=== PATIENT | female | born 1960 | race Caucasian/White ===

== ENCOUNTER 2016-11-22 12:05 | Inpatient (IN) ==
[2016-11-22 14:03] LABS: URINE CULTURE NEEDED? NO; URINE MICRO REVIEW NEEDED? NO; URINE SOURCE CLEAN CATCH
[2016-11-22 14:07] LABS: BILIRUBIN URINE NEGATIVE (NEGATIVE); BLOOD URINE MODERATE (NEGATIVE); COLOR YELLOW; GLUCOSE URINE NEGATIVE (NEGATIVE); LEUKOCYTES URINE NEGATIVE (NEGATIVE); NITRITE URINE NEGATIVE (NEGATIVE); PH URINE 6.5; PROTEIN URINE TRACE mg/dL (NEGATIVE); SP GRAVITY URINE 1.019; TURBIDITY URINE CLEAR (CLEAR); UR EPITHELIAL CELLS <10 /HPF (<10); URINE BACTERIA NEGATIVE /HPF; URINE RBC 20-40 /HPF (<10); URINE WBC <10 /HPF (<10); UROBILINOGEN URINE NORMAL (NORMAL)
[2016-11-22 14:12] LABS: BASO% 0.2 % (0.0-0.8); EOS# 0.12 X1000 (0.0-0.7); EOS% 1.5 % (0.0-10.0); HEMOGLOBIN 14.2 g/dL (12.0-16.0); LYMPH# 2.27 X1000 (1.2-3.4); LYMPH% 28.1 % (20.5-51.1); MANUAL DIFF NEEDED? NO; MCH 31.8 PG (27-31); MCHC 37.4 g/dL (33-37); MCV 85.2 FL (81-99); MONO# 0.51 X1000 (0.11-0.59); MONO% 6.3 % (1.7-9.3); MPV 9.4 FL (7.4-10.4); NEUT% 63.9 % (42.2-75.2); PLT 310 X1000 (130-400); RBC 4.46 XMIL (4.2-5.4)
[2016-11-22 14:52] LABS: ALBUMIN 4.3 g/dL (3.5-5.0); ALKALINE PHOSPHATASE 62 U/L (32-104); AMYLASE 37 U/L (20-200); BUN 7 mg/dL (8-22); CALCIUM 8.6 mg/dL (8.8-10.2); CHLORIDE 72 mmol/L (98-107); GOT 29 U/L (10-30); GPT 19 U/L (10-36); LIPASE 17 U/L (13-60); POTASSIUM 4.2 mmol/L (3.5-5.1); TCO2 20 mmol/L (25-35); TOTAL BILIRUBIN 0.66 mg/dL (0.20-1.00); TOTAL PROTEIN 7.4 g/dL (6.3-8.3)
[2016-11-22 14:58] LABS: AGAP 16; COSMO 217
[2016-11-22] MEDS ORDERED: BENADRYL IV ONE (15:01)
[2016-11-22] MEDS ORDERED: SODIUM CHLORIDE 0.9% INJ ONE ×2 (15:01→15:03)
[2016-11-22] MEDS ORDERED: SOLU-MEDROL IV ONE (15:01)
[2016-11-22] MEDS ORDERED: PHENERGAN IV ONE (15:01)
[2016-11-22] MEDS ORDERED: NS 1,000 ML IV ONE (15:01)
[2016-11-22 15:02] LABS: SODIUM 108 mmol/L (136-145)
[2016-11-22] MEDS ORDERED: PEPCID IV ONE (15:03)
[2016-11-22] MEDS ORDERED: NS 1,000 ML ONE (15:04)
--- NOTE | 2016-11-22 15:29 | PROVIDER DOCUMENTATION ---
HPI-General Adult - General Chief Complaint: Allergic Reaction Stated Complaint: ALLERGIC REACTION Time Seen by Provider: 11/22/16 12:45 Source: patient Allergies/Adverse Reactions: Patient Allergies Allergy/AdvReac Type Severity Reaction Status Date / Time Penicillins Allergy Severe ANAPHYLAXIS Verified 11/22/16 15:03 Home Medications: Amoxicillin 500 mg PO TID 11/22/16 - History of Present Illness -Gen Adult Nature of Presenting Problems: Reports her dentist gave her Amoxi fro dental infection, but she is allergic to FLIGHT [employer]. She tool 7 doses of Amoxi 500mg caps and she has been vomiting since last night. Denies F/C/abd pain, but she feels tired and looks pale. Location of Pain/Injury: reports: none Pain Radiation: reports: no radiation Quality of Pain: reports: none Severity: reports: moderate Onset/Duration: reports: last night Timing: reports: still present Context/Activities at Onset: reports: none Associated Symptoms: reports: denies symptoms, anxiety, arm pain Similar Symptoms Previously?: No Recently seen or treated by another doctor?: No Review of Systems - Adult - REVIEW OF SYSTEMS - ADULT Constitutional: reports: see HPI, fatique Eyes: reports: no symptoms reported Ears, Nose, Mouth & Throat: reports: no symptoms reported, other (L bottom molar dental cavity) Cardiovascular: reports: no symptoms reported Respiratory: reports: no symptoms reported Gastrointestinal: reports: see HPI, abdominal pain Genitourinary: reports: no symptoms reported Musculoskeletal: reports: no symptoms reported Integumentary: reports: no symptoms reported Neurological: reports: no symptoms reported Psychiatric: reports: no symptoms reported Endocrine: reports: no symptoms reported All Other Systems: Reviewed and Negative Past History - Adult - PAST MEDICAL HISTORY-ADULT Genitourinary: reports: kidney stones Musculoskeletal: reports: chronic pain (back) Psychiatric: reports: bipolar Other Conditions: reports: eye problems/injury (parasite right eye) - PRIOR SURGERIES/PROCEDURES Surgical/Procedure History: reports: hysterectomy, tonsillectomy, other (eye) - IMMUNIZATION STATUS Childhood Immunizations: See Nurse Assessment Flu Vaccine: See Nurse Assessment Physical Exam-General - PHYSICAL EXAM-ADULT Initial Vital Signs Reviewed: Yes - CONSTITUTIONAL General Appearance: appears well, alert, no apparent distress - EYES Eyes: PERRL/EOMI, pink conjunctivae - HEAD, EARS, NOSE, MOUTH & THROAT HENMT: normocephalic/atraumatic, moist mucous membranes, normal ENT inspection, TMs normal - NECK Neck: non-tender, full range of motion, supple - RESPIRATORY Respiratory: chest non-tender, lungs clear, normal breath sounds, no pleuratic chest pain, no respiratory distress, no accessory muscle use - CARDIOVASCULAR Cardiovascular: normal peripheral pulses, regular rate, rhythm, no edema - GASTROINTESTINAL (ABDOMEN) Abdominal Exam: normal bowel sounds, non tender, soft, no organomegaly - MUSCULOSKELETAL Back Exam: normal inspection, no CVA tenderness, no vertebral tenderness Extremity: normal range of motion, non-tender, normal gait, normal inspection - SKIN Integumentary: normal color, normal turgor, warm/dry - NEUROLOGIC Neurologic: grossly normal, abnormal gait - PSYCHIATRIC Psych/Mental Status: normal mood/affect, normal thought content, normal thought process, oriented x 3 Progress - PLAN OF CARE/RESULTS Progress/Plan/Lab Results: Laboratory Results - last 24 hr 11/22/16 11/22/16 11/22/16 13:48 13:48 13:54 WBC 8.09 RBC 4.46 Hgb 14.2 Hct 38.0 MCV 85.2 MCH 31.8 H MCHC 37.4 H RDW Std Deviation 12.0 Plt Count 310 MPV 9.4 Neut % (Auto) 63.9 Lymph % (Auto) 28.1 [place] % (Auto) 6.3 Eos % (Auto) 1.5 Baso % (Auto) 0.2 Neut # (Auto) 5.17 Lymph # (Auto) 2.27 [place] # (Auto) 0.51 Eos # (Auto) 0.12 Baso # (Auto) 0.02 Sodium 108 L* Potassium 4.2 Chloride 72 L Carbon Dioxide 20 L Anion Gap 16 BUN 7 L Creatinine 0.5 Estimated GFR/1.73 m2 > 60 BUN/Creatinine Ratio 14 Glucose 90 Calculated Osmolality 217 Calcium 8.6 L Total Bilirubin 0.66 AST 29 ALT 19 Alkaline Phosphatase 62 Total Protein 7.4 Albumin 4.3 Globulin 3.1 Albumin/Globulin Ratio 1.4 Amylase 37 Lipase 17 Urine Source CLEAN CATCH Urine Color YELLOW Urine Turbidity CLEAR Urine pH 6.5 Ur Specific [place] 1.019 Urine Protein TRACE A Ur Glucose (Stick) NEGATIVE Ur Ketones (Stick) 100 A Urine Blood MODERATE A Urine Nitrite NEGATIVE Urine Bilirubin NEGATIVE Urobilinogen Dipstick NORMAL Urine Leukocytes NEGATIVE Urine WBC (Auto) <10 Urine RBC (Auto) 20-40 A U Epithel Cells (Auto) <10 Urine Bacteria (Auto) NEGATIVE Vital Signs Temp Pulse Resp BP Pulse Ox 11/22/16 12:17 97.4 F L 70 20 123/65 100 Penicillins Allergy (Severe, Verified 11/22/16 15:03) ANAPHYLAXIS Amoxicillin 500 mg PO TID 11/22/16 Laboratory 11/22/16 11/22/16 11/22/16 13:54 13:48 13:48 WBC 8.09 RBC 4.46 Hgb 14.2 Hct 38.0 MCV 85.2 MCH 31.8 H MCHC 37.4 H RDW Std Deviation 12.0 Plt Count 310 MPV 9.4 Neut % (Auto) 63.9 Lymph % (Auto) 28.1 [place] % (Auto) 6.3 Eos % (Auto) 1.5 Baso % (Auto) 0.2 Neut # (Auto) 5.17 Lymph # (Auto) 2.27 [place] # (Auto) 0.51 Eos # (Auto) 0.12 Baso # (Auto) 0.02 Sodium 108 L* Potassium 4.2 Chloride 72 L Carbon Dioxide 20 L Anion Gap 16 BUN 7 L Creatinine 0.5 Estimated GFR/1.73 m2 > 60 BUN/Creatinine Ratio 14 Glucose 90 Calculated Osmolality 217 Calcium 8.6 L Total Bilirubin 0.66 AST 29 ALT 19 Alkaline Phosphatase 62 Total Protein 7.4 Albumin 4.3 Globulin 3.1 Albumin/Globulin Ratio 1.4 Amylase 37 Lipase 17 Urine Source CLEAN CATCH Urine Color YELLOW Urine Turbidity CLEAR Urine pH 6.5 Ur Specific [place] 1.019 Urine Protein TRACE A Ur Glucose (Stick) NEGATIVE Ur Ketones (Stick) 100 A Urine Blood MODERATE A Urine Nitrite NEGATIVE Urine Bilirubin NEGATIVE Urobilinogen Dipstick NORMAL Urine Leukocytes NEGATIVE Urine WBC (Auto) <10 Urine RBC (Auto) 20-40 A U Epithel Cells (Auto) <10 Urine Bacteria (Auto) NEGATIVE Orders Category Date Time Status AMYLASE [CHEM] Stat Lab 11/22/16 13:48 Completed BMP [BASIC METABOLIC PANEL] [CHEM] Stat Lab 11/22/16 15:22 Uncollected CBC WITH ELECTRONIC DIFF [HEME] Stat Lab 11/22/16 13:48 Completed COMPREHENSIVE METABOLIC PANEL [CHEM] Stat Lab 11/22/16 13:48 Completed CORTISOL Stat Lab 11/22/16 15:24 Ordered LIPASE [CHEM] Stat Lab 11/22/16 13:48 Completed MAGNESIUM [CHEM] Stat Lab 11/22/16 15:20 Uncollected Na+ [SODIUM] [CHEM] Q6 Lab 11/22/16 15:23 Uncollected Na+ [SODIUM] [CHEM] Q6 Lab 11/22/16 21:23 Uncollected Na+ [SODIUM] [CHEM] Q6 Lab 11/23/16 03:23 Uncollected Na+ [SODIUM] [CHEM] Q6 Lab 11/23/16 09:23 Uncollected Na+ [SODIUM] [CHEM] Q6 Lab 11/23/16 15:23 Uncollected Na+ [SODIUM] [CHEM] Q6 Lab 11/23/16 21:23 Uncollected OSMOTIC FRAGILITY RBC [KIRKPATRICK] Stat Lab 11/22/16 15:24 Ordered TSH Stat Lab 11/22/16 15:24 Ordered UA Reflex [URINALYSIS W/POSS RFLX CULT] [URINALYSIS] Lab 11/22/16 13:54 Completed Stat UR OSMOLALITY [CHEM] Stat Lab 11/22/16 15:24 Uncollected UR SODIUM [URCHEM] Stat Lab 11/22/16 15:25 Uncollected 0.9% Sodium Chloride Inj [Ns] 1,000 ml Med 11/22/16 15:04 Discontinued .ROUTE As Directed 0.9% Sodium Chloride Inj [Ns] 1,000 ml Med 11/22/16 15:01 Active IV 999 mls/hr Diphenhydramine [Benadryl] Med 11/22/16 15:01 Discontinued 50 mg IV NOW ONE Famotidine [Pepcid] Med 11/22/16 15:03 Discontinued 20 mg IV NOW ONE Methylprednisolone Sod Succ [Solu-Medrol] Med 11/22/16 15:01 Discontinued 125 mg IV NOW ONE Promethazine [Phenergan] Med 11/22/16 15:01 Discontinued 25 mg IV NOW ONE Sodium Chloride 0.9% Med 11/22/16 15:01 Discontinued 10 ml INJ NOW ONE Sodium Chloride 0.9% Med 11/22/16 15:03 Discontinued 5 - 10 ml INJ NOW ONE Transfer/Admit Order [TRANSFER] Routine Transfer 11/22/16 15:27 Ordered - CONSULTS/PCP/HOSPITALIST Notification Time Discussed: 15:32 Reason/Comments: Admit to Dr. Myers Consult Disposition: Will see in ED, Admit Departure - Departure Time of Disposition Order: 15:32 DIAGNOSIS: Hyponatremia, Dehydration Allergic reaction Qualifiers: Encounter type: initial encounter Qualified Code(s): T78.40XA - Allergy, unspecified, initial encounter Disposition: ADMITTED INPATIENT 09 Certified Medical Emergency: Emergent Condition: Stable Referrals: Aury Ordonez MD [Primary Care Provider] -
[2016-11-22] MEDS ORDERED: NACL 3% 100 ML IV ONE ×5 (15:35→21:13)
[2016-11-22] MEDS ORDERED: ZOFRAN IV PRN (15:54)
[2016-11-22] MEDS ORDERED: ATIVAN ONE (16:18)
[2016-11-22 16:55] LABS: URINE CULTURE NEEDED? NO; URINE MICRO REVIEW NEEDED? NO; URINE SOURCE CATH
[2016-11-22 16:58] LABS: BILIRUBIN URINE NEGATIVE (NEGATIVE); BLOOD URINE MODERATE (NEGATIVE); COLOR YELLOW; GLUCOSE URINE NEGATIVE (NEGATIVE); LEUKOCYTES URINE NEGATIVE (NEGATIVE); NITRITE URINE NEGATIVE (NEGATIVE); PH URINE 6.5; PROTEIN URINE TRACE mg/dL (NEGATIVE); SP GRAVITY URINE 1.011; TURBIDITY URINE CLEAR (CLEAR); UR EPITHELIAL CELLS <10 /HPF (<10); URINE BACTERIA 1+ /HPF; URINE RBC 20-40 /HPF (<10); URINE WBC <10 /HPF (<10); UROBILINOGEN URINE NORMAL (NORMAL)
[2016-11-22 17:50] LABS: AGAP 19
[2016-11-22 17:51] LABS: BUN 6 mg/dL (8-22); CALCIUM 8.6 mg/dL (8.8-10.2); CHLORIDE 75 mmol/L (98-107); COSMO 219; POTASSIUM 4.2 mmol/L (3.5-5.1); SODIUM 109 mmol/L (136-145); TCO2 15 mmol/L (25-35)
--- NOTE | 2016-11-22 18:06 | HISTORY AND PHYSICAL ---
PRIMARY CARE PROVIDER: Dr. Ordonez. CHIEF COMPLAINT: Allergic reaction. HISTORY OF PRESENT ILLNESS: Ms. Yudi Gray is a 55-year-old female who was currently highly confused. Is unable to answer questions that are asked so information is gathered from the ER report as she was having normal mentation on admission. She reported to them that she has got a past medical history of kidney stones, chronic pain syndrome in her back, bipolar disease. 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 According to the ER documentation, she reported that her dentist gave her amoxicillin since for a dental infection. Apparently she has a left bottom molar dental cavity. She does have an allergy to penicillin. Apparently she started having vomiting since last night and has had several bouts of vomiting. She denied abdominal pain or constipation but was feeling tired and looking pale and was complaining of fatigue. Apparently she felt that the amoxicillin was causing her to have an allergic reaction. Upon assessment, she has since become confused since admission. According to the nurse, the patient received 25 of Phenergan, 50 of Benadryl, Pepcid, 125 of Solu-Medrol and about 400 mL of 1 L normal saline and from then until the time of assessment, she had become confused which was a short timeframe. Workup during this time revealed a sodium level of 108. Will admit her to the ICU and work her up for severe hyponatremia, significant risk of cerebral edema during sodium replacement. Her white blood cells are normal. We will hold off on antibiotics for now. Her chloride is significantly low at 72. Kidney function is normal. Urinalysis is negative. Random urine sodium shows a number count of 73. PAST MEDICAL HISTORY: Obtained through the ER documentation as patient was not able to tell me her past medical history. 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 SURGICAL HISTORY: Hysterectomy and tonsillectomy and the surgery on the right eye. SOCIAL HISTORY: She was able to tell me her social history before she stopped talking to me and she said she smoked 1 pack per day of cigarettes, drank alcohol about once every 6 months and denied illicit drugs. FAMILY HISTORY: Unable to obtain. REVIEW OF SYSTEMS: Unable to obtain due to patient's status. ALLERGIES: Penicillin causes anaphylaxis. HOME MEDICATIONS: Amoxicillin 500 mg p.o. 3 times a day. LABORATORY DATA: White blood cells 8000, hemoglobin 14, hematocrit 38, platelet count 310,000. Sodium 108, potassium 4.2, chloride 72, bicarb 22, anion gap 16. BUN 7, creatinine 0.5. Glucose 90. Calcium 8.6, magnesium 1.7, total bilirubin 0.66. AST 29, ALT 19. TSH 2.73. Urinalysis trace protein, 100 ketones, moderate blood, 20-40 red blood cells. IMAGING: None. PHYSICAL EXAMINATION: VITAL SIGNS: Temperature 97.4 degrees, heart rate 70, respiratory rate 20, blood pressure 123/65, O2 saturation 100% on room air. GENERAL: Ms. Gray is a 55-year-old female. She is in no acute distress but is very agitated and not answering many questions at all. HEENT: Atraumatic, normocephalic. Right eye is magno out and mal-shapen. Left pupil 3 mm and brisk. Will not follow commands to perform extraocular movements. Mucous membranes are very dry. NECK: No carotid bruits or JVD. CARDIOVASCULAR: S1, S2. Regular rate and rhythm. No rubs, gallops murmurs. PULMONARY: Clear to auscultation. Bilateral breath sounds. No accessory muscle use or work of breathing noted. GI: Soft, nontender, nondistended. Positive bowel sounds x4. NEUROLOGIC: Would not answer orientation questions. Essentially quit answering questions during history assessment. She would not follow commands but only on occasion would follow commands. She was purposeful with her actions but was extremely agitated and disoriented. EXTREMITIES: All extremities moved equally. No edema noted in the lower extremities and +2 dorsalis pedal pulses. SKIN: Warm, dry, intact although pale. ASSESSMENT AND PLAN: 1. Severe hyponatremia with dehydration. We will replace sodium with high importance of high risk for cerebral edema. She so far has received 400 mL of 1 L of normal saline. Her 1st sodium count was 108. We have ordered a stat sodium level. There has been an order for 3% 100 mL over 15 minute IV bolus x1 that Dr. Myers had ordered. She will have a sodium via BMP every 4 hours. Urine osmolality and sodium has been ordered. 2. Metabolic encephalopathy secondary to severe hyponatremia. It appears that after receiving Phenergan, Benadryl, Pepcid, Solu-Medrol and 400 saline bolus she became confused, agitated and trying to get out of bed. Currently ordered is Ativan for agitation. 3. Dental caries. Currently her white blood cells normal. She is afebrile. We will hold on antibiotic therapy at this time. She was on amoxicillin. 4. Severe hypochloridemia secondary to #1. Will treat as #1. 5. Deep venous thrombosis prophylaxis. Lovenox. 6. Gastrointestinal prophylaxis. Will do proton pump inhibitor. Dictated by ALVARO Villa for Hever Jones MD
[2016-11-22] MEDS: ATIVAN IV PRN ×3 (18:14→23:04)
[2016-11-22 20:41] LABS: AGAP 15; BUN 6 mg/dL (8-22); CALCIUM 8.7 mg/dL (8.8-10.2); CHLORIDE 77 mmol/L (98-107); COSMO 224; SODIUM 111 mmol/L (136-145); TCO2 19 mmol/L (25-35)
[2016-11-22] MEDS ORDERED: STERILE WATER INJ. INJ ONE (20:52)
[2016-11-22] MEDS ORDERED: GEODON IM SCH (21:00)
[2016-11-22] MEDS: LOVENOX SUBQ SCH (21:20)
[2016-11-22] MEDS ORDERED: GEODON IM PRN (23:01)
[2016-11-22] MEDS ORDERED: NS 1,000 ML IV SCH (23:30)
[2016-11-23 01:15] LABS: AGAP 19; BUN 6 mg/dL (8-22); CALCIUM 8.9 mg/dL (8.8-10.2); CHLORIDE 80 mmol/L (98-107); COSMO 228; POTASSIUM 4.2 mmol/L (3.5-5.1); TCO2 14 mmol/L (25-35)
[2016-11-23 01:16] LABS: SODIUM 113 mmol/L (136-145)
[2016-11-23] MEDS: HALDOL IV PRN ×2 (01:42→08:43)
[2016-11-23 02:14] LABS: UR AMPHETAMINES QUAL NONE DETECTED (NONE DETECT); UR BARBITUATES QUAL NONE DETECTED (NONE DETECT); UR BENZODIAZEPIN QUAL NONE DETECTED (NONE DETECT); UR CANNABINOIDS QUAL NONE DETECTED (NONE DETECT); UR COCAINE QUAL NONE DETECTED (NONE DETECT); UR METHADONE QUAL NONE DETECTED (NONE DETECT); UR OPIATES QUAL PRESUMPTIVE POSITIVE (NONE DETECT); UR OXYCODONE QUAL PRESUMPTIVE POSITIVE (NONE DETECT); UR PCP QUAL NONE DETECTED (NONE DETECT)
[2016-11-23 03:43] LABS: AGAP 17; BUN 6 mg/dL (8-22); CHLORIDE 82 mmol/L (98-107); COSMO 234; POTASSIUM 4.1 mmol/L (3.5-5.1); TCO2 17 mmol/L (25-35)
[2016-11-23 03:44] LABS: SODIUM 116 mmol/L (136-145)
[2016-11-23] MEDS ORDERED: HALDOL IV SCH (05:00)
[2016-11-23 05:29] LABS: BASO% 0.1 % (0.0-0.8); HEMATOCRIT 37.2 % (37.0-47.0); IMM GRAN# 0.05 X1000 (0.0-0.04); IMM GRAN% 0.3 % (0.0-0.5); LYMPH# 1.07 X1000 (1.2-3.4); LYMPH% 6.2 % (20.5-51.1); MANUAL DIFF NEEDED? YES; MCH 31.3 PG (27-31); MCHC 37.6 g/dL (33-37); MCV 83.2 FL (81-99); MONO% 5.8 % (1.7-9.3); MPV 9.5 FL (7.4-10.4); NEUT% 87.6 % (42.2-75.2); PLT 350 X1000 (130-400); RBC 4.47 XMIL (4.2-5.4)
[2016-11-23 05:55] LABS: AGAP 17; BUN 6 mg/dL (8-22); CALCIUM 9.1 mg/dL (8.8-10.2); CHLORIDE 83 mmol/L (98-107); COSMO 233; POTASSIUM 4.2 mmol/L (3.5-5.1); TCO2 16 mmol/L (25-35)
[2016-11-23 05:56] LABS: SODIUM 116 mmol/L (136-145)
[2016-11-23] MEDS ORDERED: PRILOSEC PO SCH (07:00)
[2016-11-23] MEDS ORDERED: NS 1,000 ML IV SCH (07:04)
[2016-11-23 07:21] LABS: BANDS 4 % (0-1); LYMPHS 4 % (21-51); MONO 6 % (1-9)
[2016-11-23] MEDS: PROTONIX IV SCH (09:14)
[2016-11-23 09:30] LABS: AGAP 15; BUN 6 mg/dL (8-22); CALCIUM 8.9 mg/dL (8.8-10.2); CHLORIDE 84 mmol/L (98-107); COSMO 234; POTASSIUM 3.9 mmol/L (3.5-5.1); SODIUM 117 mmol/L (136-145); TCO2 18 mmol/L (25-35)
--- NOTE | 2016-11-23 09:57 | PROGRESS NOTE ---
DATE: 11/23/2016 SUBJECTIVE: Patient is sedated now because she went to have a CT scan of the head. OBJECTIVE: Vital Signs: Temperature 99 degrees, heart rate 79, respiratory rate 15, blood pressure 113/68, O2 saturation 97% on room air. General Examination: This is a 55-year-old, female lying in bed, sedated, in no acute distress. HEENT: Head is normocephalic and atraumatic. Anicteric sclerae and pale conjunctivae. Mucous membranes dry. Pupils equal, round, and reactive to light and accommodation. Neck: Supple. No JVD noted. No carotid bruits. No lymphadenopathy. No thyromegaly. Cardiovascular Examination: S1 and S2 heard. No murmurs, gallops, or rubs. Regular rate and rhythm. Respiratory Examination: Clear bilaterally to auscultation. No work of breathing or using accessory muscles. Abdomen: Soft , nontender to palpation. Bowel sounds present. No organomegaly. Extremities: No clubbing, cyanosis, or edema. Peripheral pulses present in both legs. Neurological Examination: Patient is sedated. It is not possible to perform a good neurological examination but she was not moving 4 extremities before being sedated. Laboratory Data: White cell count is 17.13, hemoglobin 14, hematocrit 37.2, platelets 350,000. Sodium 116. Rest of the BMP unremarkable. ASSESSMENT AND PLAN: 1. Severe hyponatremia. This patient was admitted to the hospital for hyponatremia that we find out incidentally. The patient was admitted to the hospital for an episode of allergy and after she was given Benadryl and Phenergan in the emergency room, her BMP and CBC were drawn, and we found the sodium was 108. At the time that this patient was found out this low sodium, she was doing fine as per ER physician and 10 minutes later I went to see her and as per ER nurse she became more lethargic and restless. Patient was admitted to the intensive care unit. She received until now so far 2 doses of 100 mL of 3% hypertonic saline that was given over 15 minutes. Yesterday, she was admitted around 4 p.m. so until 4 p.m. today my goal is to increase sodium between 6-8 mEq. So far, we have increased it 8 mEq. Apparently, she is a little bit better, less restless today. We have instructed the nurse to not give any sedative medication unless it is truly needed. By now, we will continue with normal saline at 50 mL per hour. We will continue watching this patient in the unit. Apparently, she has history of bipolar disorder as per emergency room notes, although this information has not been confirmed with the who was not at bedside today when I examined this patient. We do not know if she was taking some antidepressant or anticonvulsant, and if yes, for how long, we do not know. In any case, we will continue with the same plan that was described above. Urine osmolality is really high. The serum osmolality is not yet back but the calculated is low so this looks like more than syndrome of inappropriate antidiuretic hormone secretion picture. The workup for hyponatremia that included TSH was normal. Mild elevated cortisol that is something that we expect because she received steroids because of allergic reaction. 2. Metabolic encephalopathy secondary to hyponatremia. By now, she is stable and a little better. Time spent seeing this patient was 35 minutes. [facility]ITALSalud
--- NOTE | 2016-11-23 10:34 | Diag Imaging Result Document ---
PROCEDURE NAME: HEAD W/O CONTRAST - 11/23/2016 CT HEAD WITHOUT CONTRAST: COMPARISON: None available. FINDINGS: There is no discrete intracranial mass, mass effect, or intracranial hemorrhage. There is no evidence of hydrocephalus. There is no evidence of acute infarct given the limited sensitivity of CT versus MRI. The surrounding soft tissues and bony structures are essentially unremarkable. IMPRESSION: No evidence of acute intracranial pathology.
[2016-11-23] MEDS: ATIVAN IV PRN (12:19)
[2016-11-23 13:08] LABS: AGAP 15; BUN 6 mg/dL (8-22); CALCIUM 8.3 mg/dL (8.8-10.2); CHLORIDE 82 mmol/L (98-107); COSMO 227; POTASSIUM 3.7 mmol/L (3.5-5.1); SODIUM 113 mmol/L (136-145); TCO2 16 mmol/L (25-35)
[2016-11-23] MEDS: NS 1,000 ML IV SCH ×2 (13:30→21:09)
[2016-11-23] MEDS ORDERED: LEVAQUIN 750 MG/D5W 150 ML IV SCH (19:15)
[2016-11-23] MEDS ORDERED: CLINDAMYCIN 600 MG/NS 50 ML IV SCH (19:15)
[2016-11-23] MEDS: LOVENOX SUBQ SCH (20:16)
[2016-11-23] MEDS: LEVAQUIN 750 MG/D5W 150 ML IV SCH (20:16)
[2016-11-23] MEDS: CLINDAMYCIN 600 MG/NS 50 ML IV SCH (21:09)
[2016-11-23 22:07] LABS: AGAP 12; BUN 8 mg/dL (8-22); CALCIUM 7.8 mg/dL (8.8-10.2); CHLORIDE 87 mmol/L (98-107); COSMO 236; POTASSIUM 3.4 mmol/L (3.5-5.1); SODIUM 117 mmol/L (136-145); TCO2 18 mmol/L (25-35)
[2016-11-24 03:07] LABS: AGAP 14; BUN 7 mg/dL (8-22); CALCIUM 8.1 mg/dL (8.8-10.2); CHLORIDE 86 mmol/L (98-107); COSMO 236; POTASSIUM 3.8 mmol/L (3.5-5.1); SODIUM 118 mmol/L (136-145); TCO2 18 mmol/L (25-35)
[2016-11-24] MEDS: CLINDAMYCIN 600 MG/NS 50 ML IV SCH ×2 (05:49→14:28)
[2016-11-24 05:55] LABS: BASO% 0.1 % (0.0-0.8); EOS# 0.04 X1000 (0.0-0.7); EOS% 0.4 % (0.0-10.0); HEMATOCRIT 35.8 % (37.0-47.0); HEMOGLOBIN 13.3 g/dL (12.0-16.0); IMM GRAN# 0.03 X1000 (0.0-0.04); IMM GRAN% 0.3 % (0.0-0.5); LYMPH# 2.11 X1000 (1.2-3.4); LYMPH% 19.6 % (20.5-51.1); MANUAL DIFF NEEDED? YES; MCH 31.7 PG (27-31); MCHC 37.2 g/dL (33-37); MCV 85.2 FL (81-99); MONO# 0.91 X1000 (0.11-0.59); MONO% 8.5 % (1.7-9.3); MPV 9.5 FL (7.4-10.4); NEUT% 71.1 % (42.2-75.2); PLT 304 X1000 (130-400)
[2016-11-24 06:28] LABS: AGAP 13; BUN 7 mg/dL (8-22); CALCIUM 8.3 mg/dL (8.8-10.2); CHLORIDE 88 mmol/L (98-107); COSMO 240; POTASSIUM 3.7 mmol/L (3.5-5.1); SODIUM 120 mmol/L (136-145); TCO2 19 mmol/L (25-35)
[2016-11-24 08:24] LABS: LYMPHS 24 % (21-51); MONO 2 % (1-9)
[2016-11-24] MEDS: SODIUM CHLORIDE 0.9% INJ SCH (08:55)
[2016-11-24] MEDS: PROTONIX IV SCH (08:55)
[2016-11-24] MEDS: NS 1,000 ML IV SCH ×2 (08:55→17:09)
[2016-11-24 09:13] LABS: AGAP 14; BUN 6 mg/dL (8-22); CHLORIDE 86 mmol/L (98-107); COSMO 236; POTASSIUM 3.7 mmol/L (3.5-5.1); SODIUM 118 mmol/L (136-145); TCO2 18 mmol/L (25-35)
--- NOTE | 2016-11-24 09:41 | Diag Imaging Result Document ---
PROCEDURE NAME: CHEST-2 VIEWS - 11/24/2016 2 VIEWS OF THE CHEST: FINDINGS: There is no evidence of acute cardiac or pulmonary disease. Compared to 03/16/2014 considering differences in technique and inspiration there has been no significant change. IMPRESSION: No acute disease.
--- NOTE | 2016-11-24 10:52 | PROGRESS NOTE ---
DATE: 11/24/2016 SUBJECTIVE: Patient is alert and oriented. Unable to provide a history. As per who is at bedside, she is back to her baseline. OBJECTIVE: Vital Signs: Temperature 97.6 degrees, heart rate 75, respiratory rate 15, blood pressure 128/68, O2 saturation 99% on room air. General Examination: This is a 55-year-old, female lying in bed, in no acute distress. HEENT: Head is normocephalic and atraumatic. Anicteric sclerae and pale conjunctivae. Mucous membranes moist. Neck: Supple. No JVD noted. No carotid bruits. No lymphadenopathy. No thyromegaly. Cardiovascular Examination: S1 and S2 heard. No murmurs, gallops, or rubs. Regular rate and rhythm. Respiratory Examination: Clear bilaterally to auscultation. No work of breathing or using accessory muscles. Abdomen: Soft, nontender to palpation. Bowel sounds present. No organomegaly. Extremities: No clubbing, cyanosis, or edema. Peripheral pulses present in both legs. Neurological Examination: Patient is alert and oriented x3. Able to move 4 extremities and have a good conversation. Laboratory Data: White cell count 10.75, hemoglobin 13.3, hematocrit 35.8, platelets 304,000. Sodium 120, potassium 3.7, chloride 86, bicarbonate 18, BUN 6, creatinine 0.5, calcium 8. ASSESSMENT AND PLAN: 1. Severe hyponatremia. The patient was admitted to the hospital for hyponatremia of unknown source. Patient has been admitted to the intensive care unit for the last 2 days. She was given twice 100 mL of hypertonic saline 2% 15 minutes and also on maintenance , she on normal saline at 160 per hour. By now, the sodium was 120. We have increased the sodium in the last 24 hours on 8 units and today is 120 so we are slowly increasing the amount of sodium in the blood. At this time, we are going to continue with the same management. Clinically, this patient is definitely back to normal and I think all the symptoms like lethargy and restlessness were due to low sodium. In any case, this patient, as I mentioned, reportedly back to normal. Able to have a good conversation. She reports not taking her medications for psychiatric conditions for a while. She does not remember exactly what diagnosis she was given but she is not on any medications for at least more than a year. Also , she was told in the emergency room that she had a low sodium. On records that we have here, at least from BMP from March 2014 and January 2016, and also September 2016, sodium was 136-135 so this hyponatremia is most probably acute. In any case, we will continue with the same fluid replacement by IV. We are going to check today a BMP at 5 p.m. and also tomorrow. If the sodium is much better and the mental status is okay, we may let this patient go. 2. Metabolic encephalopathy, completely resolved. [facility]
[2016-11-24 17:44] LABS: AGAP 15; BUN 6 mg/dL (8-22); CHLORIDE 83 mmol/L (98-107); COSMO 234; POTASSIUM 3.4 mmol/L (3.5-5.1); TCO2 19 mmol/L (25-35)
[2016-11-24 18:09] LABS: SODIUM 117 mmol/L (136-145)
[2016-11-24] MEDS ORDERED: NS 1,000 ML IV SCH (20:53)
[2016-11-24] MEDS: 1/2 NS 1,000 ML IV SCH (22:19)
[2016-11-24] MEDS: LOVENOX SUBQ SCH (22:39)
[2016-11-24] MEDS: LEVAQUIN 750 MG/D5W 150 ML IV SCH (22:40)
[2016-11-25] MEDS: CLINDAMYCIN 600 MG/NS 50 ML IV SCH ×3 (00:12→15:04)
[2016-11-25] MEDS ORDERED: CALMOSEPTINE OINTMENT TOP PRN (02:22)
[2016-11-25 07:08] LABS: MANUAL DIFF NEEDED? NO
[2016-11-25 07:44] LABS: AGAP 13; BUN 3 mg/dL (8-22); CALCIUM 7.9 mg/dL (8.8-10.2); CHLORIDE 82 mmol/L (98-107); COSMO 229; POTASSIUM 3.3 mmol/L (3.5-5.1); SODIUM 114 mmol/L (136-145); TCO2 20 mmol/L (25-35)
[2016-11-25 07:57] LABS: BASO% 0.3 % (0.0-0.8); EOS# 0.08 X1000 (0.0-0.7); EOS% 0.8 % (0.0-10.0); HEMATOCRIT 31.6 % (37.0-47.0); HEMOGLOBIN 11.6 g/dL (12.0-16.0); IMM GRAN# 0.02 X1000 (0.0-0.04); IMM GRAN% 0.2 % (0.0-0.5); LYMPH# 2.39 X1000 (1.2-3.4); LYMPH% 25.1 % (20.5-51.1); MCH 31.2 PG (27-31); MCHC 36.7 g/dL (33-37); MCV 84.9 FL (81-99); MONO# 0.82 X1000 (0.11-0.59); MONO% 8.6 % (1.7-9.3); MPV 9.3 FL (7.4-10.4); PLT 303 X1000 (130-400); RBC 3.72 XMIL (4.2-5.4)
[2016-11-25] MEDS: PROTONIX IV SCH (08:35)
[2016-11-25] MEDS: SODIUM CHLORIDE 0.9% INJ SCH (08:35)
[2016-11-25] MEDS: 1/2 NS 1,000 ML IV SCH (09:44)
[2016-11-25] MEDS ORDERED: SAMSCA PO SCH (10:30)
--- NOTE | 2016-11-25 11:39 | CONSULTATION ---
DATE OF CONSULTATION: 11/25/2016 REASON FOR ADMISSION: Possible allergic reaction to penicillin with severe weakness and syncopal episode. REASON FOR CONSULT: Hyponatremia. HISTORY OF PRESENT ILLNESS: Ms. Gray is a 55-year-old white female who is currently confused to most recent events. Is unable to give an accurate report into the last several days during her hospitalization. She reports that she sees Dr. Ordonez as her primary care physician. Due to increased congestion she was given amoxicillin with an allergy of penicillin. She states that she started having vomiting several days before coming into the hospital. She denies any abdominal pain. No chest pain. No increased work of breathing. Increased fatigue. Increased confusion. During this period of time she presented to [facility]. She was given Phenergan, Benadryl, Pepcid and Solu-Medrol along with 1 L normal saline. It was found during that period of time that she had a sodium level of 108. Subsequently she was admitted to ICU for a hyponatremia workup. Significant risk for cerebral edema for close evaluation. Her kidney function is normal. She denies any nausea, vomiting, or diarrhea at this time. Random urine sodium did show a number count of 73. During this hospitalization she continues to be confused, so she was moved out to the floor. Her sodium continues low at 114. She currently has half normal saline infusing at 100 mL an hour. She has not been placed on a fluid restriction. According to home medication she is not on any offending trigger medications for hydrochlorothiazide for antidepressants. Due to her low sodium she continues to be monitored on the floor. PAST MEDICAL HISTORY: She currently has an abscess to the left molar dental cavity. She states that she does have a history of kidney stones with chronic back pain. 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 It is also noted on her chart that she has bipolar disorder. SURGICAL HISTORY: 1. Hysterectomy. 2. Tonsillectomy. 3. Surgery on her right eye. SOCIAL HISTORY: She is a current smoker of 1 pack per day Drinks alcohol on occasion. Denies any illicit drug use. FAMILY HISTORY: Unable to obtain. CURRENT ALLERGIES: To Penicillin causing anaphylaxis. HOME MEDICATION: Amoxicillin. REVIEW OF SYSTEMS: Review of systems x 10 is best obtained per chart and per patient. Pertinent positives listed above in the HPI.Vital Signs: Temperature 98.6 degrees, blood pressure 111/80, heart rate 73, respirations 21. She remains on room air. Last recorded saturation of 100%. She has had 1900 in; she has had 2590 out per Miller catheter. LABS: This a.m. sodium 114, potassium 3.3, chloride 82, CO2 20, BUN 3, creatinine 0.5, glucose 94. She has an anion gap of 13. Calcium is 7.9. White count 9.53 hemoglobin 11.6, hematocrit 31.6 with a platelet count of 303,000. The patient has had diarrhea related to her amoxicillin and C. difficile has been negative. Chest x-ray on admission yesterday showed no acute disease. Head CT done on admission shows no evidence of intracranial pathology. PHYSICAL EXAMINATION: General: This is a 55-year-old white female. She is currently resting in bed. She continues slightly confused upon questioning. Skin: Warm and dry. HEENT: Atraumatic normocephalic. Right eye is white, mal-shaped. Left pupil is brisk at 3 mm. She is able to answer some questions and then becomes forgetful. Mucous membranes are moist. Neck: Supple. Trachea midline. No JVD. Cardiovascular: Regular rate and rhythm. She is without murmur or gallop. Lungs: Clear to auscultation anteriorly. Equal excursion. Abdomen: Large, round, soft, nontender. Positive bowel sounds. Genitourinary: Not inspected. Patient is voiding. Integumentary: The patient has abrasions to both bilateral extremities to the elbows. She states it is possibly due to being restrained during her initial admission. No abrasions noted to the face. Extremities: Lower- no edema. No clubbing or cyanosis. Neurological: As mentioned. ASSESSMENT AND PLAN: 1. Severe hyponatremia. Likely SIADH with a urine osmolality of 561 with a random urine sodium of 73. We will stop patient's normal saline. We will add Samsca 15 mg p.o. today and plan for tomorrow. We will continue to monitor electrolytes checking her urine sodium every 4 hours with indications to call if of sodium rises greater than 2-3 points in 4 hours. She is not to be on a fluid restriction. We have put this in order to the nursing staff; otherwise, no further indications or changes at this time. We have reviewed her medication. She has not been on any offending medicines at this time.rg 2. Altered mental status. This does continue. This is more than likely secondary to her continued low sodium. I would like to thank you for allowing us to follow with this patient. Seen, data reviewed, discussed with Osbaldo Fernandes on 11/25/15. I agree with the above assessment and plan of care. rg Dictated by ALVARO Calderon for Tobias Mejia MD [facility]
--- NOTE | 2016-11-25 17:26 | PROGRESS NOTE ---
DATE: 11/25/2016 SUBJECTIVE: The patient states that she is feeling better, she is able to maintain a conversation with me. I am not quite sure if this is her baseline, no family members at the bedside. She is still mildly confused, but compared with the beginning she is much better. OBJECTIVE: Vital Signs: Temperature 97.8 degrees, pulse 73, respiratory rate 10, blood pressure 97/56, oxygen saturation 97% on room air. HEENT: Head normocephalic. No trauma. 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 Neck: Supple. No JVD. No masses. Chest: Clear to auscultation. No wheezing. No rales. Cardiovascular: Regular rhythm and rate. No murmurs. No gallops. No rubs. Abdomen: Soft, nontender, nondistended. No hepatosplenomegaly. Extremities: No edema. No clubbing. No cyanosis. Neurological: The patient is alert. She is oriented x3, but somewhat it looks like she has been having problems remembering thinks, I am not quite sure if this is her baseline. I do not have any family members around like I said before. LABORATORY: WBC 9.5, hemoglobin 11.6, platelets 303,000. Sodium 118, potassium 3.3, chloride 82, bicarbonate 20, BUN 3, creatinine 0.5, glucose 94, calcium 79. ASSESSMENT AND PLAN: 1. Severe hyponatremia, Nephrology Department has been consulted, they already evaluated this patient, and they stopped the intravenous fluids and they will try to improve the sodium with tolvaptan, two doses. We will monitor the sodium. 2. Metabolic encephalopathy, compared with beginning she is much better, I am not quite sure what is her baseline, no family members are around, will monitor. 3. Chronic back pain. Stable.
[2016-11-25] MEDS: LEVAQUIN 750 MG/D5W 150 ML IV SCH (20:50)
[2016-11-25] MEDS: LOVENOX SUBQ SCH (20:51)
[2016-11-25] MEDS: D5W 1,000 ML IV SCH (23:35)
[2016-11-26] MEDS: CLINDAMYCIN 600 MG/NS 50 ML IV SCH ×4 (00:26→23:51)
[2016-11-26 04:42] LABS: BASO% 0.3 % (0.0-0.8); EOS# 0.05 X1000 (0.0-0.7); EOS% 0.5 % (0.0-10.0); HEMATOCRIT 36.5 % (37.0-47.0); HEMOGLOBIN 13.7 g/dL (12.0-16.0); IMM GRAN# 0.03 X1000 (0.0-0.04); IMM GRAN% 0.3 % (0.0-0.5); LYMPH% 26.1 % (20.5-51.1); MANUAL DIFF NEEDED? NO; MCH 31.9 PG (27-31); MCHC 37.5 g/dL (33-37); MCV 84.9 FL (81-99); MONO# 0.87 X1000 (0.11-0.59); MONO% 9.1 % (1.7-9.3); MPV 8.9 FL (7.4-10.4); NEUT% 63.7 % (42.2-75.2); PLT 376 X1000 (130-400)
[2016-11-26 05:56] LABS: BUN 6 mg/dL (8-22); CALCIUM 9.1 mg/dL (8.8-10.2); TCO2 21 mmol/L (25-35)
[2016-11-26 08:05] LABS: AGAP 16; CHLORIDE 98 mmol/L (98-107); COSMO 266; POTASSIUM 3.3 mmol/L (3.5-5.1); SODIUM 134 mmol/L (136-145)
[2016-11-26] MEDS ORDERED: KLOR-CON PO ONE (09:01)
[2016-11-26] MEDS: PROTONIX IV SCH (09:19)
[2016-11-26] MEDS: SODIUM CHLORIDE 0.9% INJ SCH (09:19)
[2016-11-26] MEDS: D5W 1,000 ML IV SCH (11:46)
--- NOTE | 2016-11-26 15:17 | PROGRESS NOTE ---
DATE: 11/26/2016 SUBJECTIVE: This patient states that she is feeling much better, she has no complaints today. OBJECTIVE: Vital Signs: Temperature 98.1 degrees, pulse 74, respiratory rate 20, blood pressure 108/66, oxygen saturation 99 on room air. HEENT: Head normocephalic. No trauma. 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 Neck: Supple. No JVD. No masses. Chest: Clear to auscultation. No wheezing. No rales. Cardiovascular : RRR. No murmurs. No gallops. No rubs. Abdomen: Soft, nontender, nondistended. No hepatosplenomegaly. Extremities: No edema. No clubbing. No cyanosis. Neurological: The patient is alert. She is oriented x3. She is not confused today. No family members at the bedside. LABORATORY: WBC 9.5, hemoglobin 13.7, hematocrit 36.5, platelets 376,000. Sodium 131, potassium 3.3, chloride 98, bicarbonate 21, BUN 6, creatinine 0.7, glucose 97, calcium 9.1. ASSESSMENT AND PLAN: 1. Severe hyponatremia. Nephrology department has been consulted. They already evaluated this patient and they treated this patient, the sodium improved, is close to normal. The plan is to keep this patient 1 more day and tomorrow hopefully we are going to be able to discharge this patient. 2. Metabolic encephalopathy. Resolved. 3. Chronic pain syndrome. Stable. MTDD
[2016-11-26] MEDS: LEVAQUIN 750 MG/D5W 150 ML IV SCH (20:12)
[2016-11-26] MEDS: LOVENOX SUBQ SCH (20:12)
--- NOTE | 2016-11-26 20:17 | PROGRESS NOTE ---
DATE: 11/26/2016 TIME SEEN: 0745. SUBJECTIVE: Ms. Gray is currently sitting up in bed. She states that she is feeling a little bit better. She denies chest pain or increased work of breathing. States that she is feeling stronger. OBJECTIVE: Vital Signs: Her most recent vital signs, temperature 98.1 degrees , blood pressure 108/66, heart rate 74, respirations are 20, she was on room air. Last recorded saturation 99%. She has had 2180 in. She has had greater than 11,000 out, which I think is actually 11,120 mL out. LABORATORY DATA: This a.m., sodium is 134, potassium 3.3, chloride 98, CO2 21, BUN 6, creatinine 0.7, anion gap 21, glucose 97, calcium 9.1. Previous sodium of 132 with most current sodium of 131. Her last CBC, white count 9.57, hemoglobin 13.7, hematocrit 36.5, with a platelet count of 376,000. PHYSICAL EXAMINATION: General: This is a 55-year-old white female. She is sitting up in bed. She appears chronically ill. She is in no acute distress. Skin: Warm and dry. HEENT: Normocephalic, atraumatic. Conjunctivae pale. She has BRITTANEY. Mucous membranes moist. Neck: Supple. Trachea midline. No JVD. Cardiovascular: Regular rate and rhythm. She is without murmur or gallop. Lungs: Clear to auscultation anteriorly. Equal excursion on room air. Abdomen: Round, soft, nontender. Positive bowel sounds. Genitourinary: Not inspected. Adequate void. Integumentary: Patient has healing stages of abrasions to her bilateral elbows with some bruising and ecchymosis noted to the upper and lower extremities in different stages of healing. Neurologic: She is more alert and oriented today. She is able to give a better review of systems. Extremities: No edema. No clubbing or cyanosis. ASSESSMENT AND PLAN: 1. Hyponatremia. We had given patient Samsca 15 mg yesterday. She was not on a fluid restriction. Patient started correcting up into the 130s from 118. She was placed on 1 L D5W yesterday evening at 100 mL an hour. We will hold her 2nd Samsca today. We will continue to monitor her sodium every 4 hours. She remains off of a fluid restriction at this time. Upon questioning the patient, she does state that she is drinking all the time. She believes that she drinks approximately 2-4 L of fluid daily. 2. Altered mental status. This is currently improving. No indications for any changes at this time. Addendum. I went ahead and dosed with Samsca again in the evening of 11/26/16 b/ c her sodium had stabilized in the low 130's. rg I would like to thank you for allowing us to follow with this patient. Seen, data reviewed, discussed with Osbaldo Fernandes on 11/26/16. I agree with the above assessment and plan of care. rg Dictated by ALVARO Calderon for Tobias Mejia MD [facility]
[2016-11-26] MEDS ORDERED: SAMSCA PO ONE (21:56)
[2016-11-27 05:37] VITALS: BP 106/73
[2016-11-27 06:41] LABS: MANUAL DIFF NEEDED? NO
[2016-11-27 06:51] LABS: BASO% 0.7 % (0.0-0.8); EOS# 0.46 X1000 (0.0-0.7); EOS% 3.8 % (0.0-10.0); HEMATOCRIT 37.4 % (37.0-47.0); HEMOGLOBIN 13.5 g/dL (12.0-16.0); IMM GRAN# 0.04 X1000 (0.0-0.04); IMM GRAN% 0.3 % (0.0-0.5); LYMPH# 3.21 X1000 (1.2-3.4); LYMPH% 26.7 % (20.5-51.1); MCH 31.5 PG (27-31); MCHC 36.1 g/dL (33-37); MCV 87.2 FL (81-99); MONO# 0.95 X1000 (0.11-0.59); MONO% 7.9 % (1.7-9.3); MPV 9.1 FL (7.4-10.4); NEUT% 60.6 % (42.2-75.2); PLT 425 X1000 (130-400); RBC 4.29 XMIL (4.2-5.4)
[2016-11-27 07:17] LABS: AGAP 14; BUN 6 mg/dL (8-22); CALCIUM 9.5 mg/dL (8.8-10.2); CHLORIDE 100 mmol/L (98-107); COSMO 271; POTASSIUM 3.3 mmol/L (3.5-5.1); SODIUM 137 mmol/L (136-145); TCO2 23 mmol/L (25-35)
[2016-11-27] MEDS ORDERED: KLOR-CON PO ONE (08:26)
[2016-11-27] MEDS ORDERED: FLUZONE QUAD 2016-2017 SYRINGE IM ONE (09:00)
[2016-11-27] MEDS: PROTONIX IV SCH (09:20)
[2016-11-27] MEDS: CLINDAMYCIN 600 MG/NS 50 ML IV SCH (09:20)
--- NOTE | 2016-11-27 15:08 | PROGRESS NOTE ---
DATE: 11/27/2016 TIME SEEN: Is 1350. SUBJECTIVE: Ms. Gray is resting quietly on the side of the bed. She is sitting up. She states that she is feeling well. She denies chest pain or increased work of breathing. No increased weakness. No nausea, vomiting. OBJECTIVE: Her most recent vital signs, temperature 97.8, blood pressure 106/73 , heart rate 76, respirations are 18. She remains on room air. Last recorded saturation 100%. She has had 1100 in. She has had 1350 out. She is not on a fluid restriction secondary to receiving Samsca yesterday evening. LABS: This a.m. sodium 137, potassium 3.3, chloride 100, CO2 of 23, BUN 6, creatinine 0.7. Her glucose is 94, calcium 9.5. Previous white count 12.03, hemoglobin 13.5, hematocrit 37.4, with a platelet count of 425,000. PHYSICAL EXAMINATION: General: This is a 55-year-old, white female. She is sitting up. She is in no acute distress. Skin: Warm and dry. HEENT: Normocephalic, atraumatic. She continues to have opaqueness to her right eye secondary to surgery. Otherwise, left pupil is reactive to light. Mucous membranes are moist. Neck: Supple. Trachea midline. No JVD. Cardiovascular: Regular rate and rhythm. She is without murmur or gallop. Lungs: Clear to auscultation anteriorly. Equal excursion. She is on room air. Abdomen: Protuberant, round , soft, nontender. Positive bowel sounds. Genitourinary: Not inspected. Patient is voiding adequate amount. Integumentary: She continues to have healing stages of abrasions to her upper extremities with different stages of healing, ecchymoses to the upper and lower extremities as noted. No rashes or lesions. Extremities: Have no edema. No clubbing or cyanosis. Neurological: She is alert and oriented x3. ASSESSMENT AND PLAN: 1. Hyponatremia. Patient was given Samsca 15 mg again yesterday due to a plateau of her sodium at 131. This has responded nicely. She remains on no fluid restriction, though we have told her if she does not go home on Samsca she is to stay on a 2 L fluid restriction, 64 fluid ounces. Patient does admit along with her daughter that she drinks anywhere from 4-6 L daily. We have not indicated that this is inappropriate at this time. She is to follow up with her primary care physician. 2. Altered mental status. This has improved. I would like to thank you for allowing us to follow with this patient. Data reviewed, discussed with Osbaldo Fernandes on 11/27/16. I agree with the above assessment and plan of care. rg Dictated by ALVARO Calderon for Tobias Mejia MD [facility]
--- NOTE | 2016-11-28 11:49 | DISCHARGE SUMMARY ---
ADMISSION DATE: 11/22/2016 DISCHARGE DATE: 11/27/2016 CONSULTATION: Dr. Tobias Mejia with nephrology. PERTINENT PROCEDURE: Head CT showed no evidence of acute intracranial pathology. DISCHARGE DIAGNOSES: 1. Severe hyponatremia, likely syndrome of inappropriate diuretic hormone with a urine osmolality 561. Nephrology was consulted and the patient was given 2 doses of Samsca, improved. 2. Metabolic encephalopathy, resolved. 3. Chronic pain syndrome, stable. 4. Severe hypochloridemia secondary to her hyponatremia, resolved. 5. Dental caries. Patient was placed on IV antibiotics; previously before that, she had been on amoxicillin. Will go home on no antibiotics. HOSPITAL COURSE: Briefly, Ms. Gray is a 55-year-old female, who was highly confused in the ED and was unable to answer the SH[employer]G TRAINER's questions at the time of admission. However, per the ER report she was having normal mentation on admission to the ED. She had reported to them that she has got a past medical history of kidney stones, chronic pain syndrome in her back with bipolar disease. 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 According to the ER documentation, she reported that her dentist gave her amoxicillin the previous for a dental infection. She had apparently had a left bottom molar dental cavity and does carry an allergy to penicillin. She started having constipation, but was feeling tired and looking pale and complained of fatigue. She felt like the amoxicillin was causing an allergic reaction. According to the nurse, the patient received 25 of Phenergan, 50 of Benadryl along with Pepcid and Solu-Medrol and a 400 mL bolus of normal saline. Workup did reveal a sodium level of 108. She was admitted to the ICU for further workup for her hyponatremia, and her significant risk of cerebral edema during her sodium replacement. White counts were normal. Initially held off on antibiotics, but then started on IV antibiotics for her dental caries. She also had serial BMPs to monitor her sodium. She was started on hypertonic 2% saline and changed to normal saline. Her sodium slowly had an upward trend. The patient reports not taking her psychiatric medications for awhile now. She was unable to get the type of medications and/or dosage she was on. Dr. Mejia was consulted. Her metabolic encephalopathy had completely resolved. Dr. Mejia felt it was severe hyponatremia most likely SIADH with a urine osmolality of 561 and a random urine of 73. Her normal saline was stopped. They added Samsca and continued to monitor her electrolytes. The patient was taken off any fluid restrictions. The patient's sodium went from 118-130. She was then placed on 1 L D5W at 100 mL/hour. Her second dose of Samsca was held. We continued to monitor her serum sodium every 4 hours. She will remain off fluid restrictions. Since 11/25 around 7:40 in the evening, the patient's sodium every 4 hours has remained in the 130s. Today on discharge her sodium was 137. Dr. Myers felt that the patient was appropriate for discharge today. VITAL SIGNS AT TIME OF DISCHARGE: Temperature is 97.8 degrees, heart rate 76, respirations 21, blood pressure 106/73, O2 is 100% on room air. DISCHARGE DIET: Regular. DISCHARGE MEDICATIONS: None. FOLLOWUP: Patient is being discharged home. She can follow up with Dr. Aury Ordonez in 7-10 days for follow up BNP. Patient to return to the ED for any worsening of symptoms. DISCHARGE TIME: 30 minutes. Dictated by ALVARO Zhang for Rylan Sim MD
== END 2016-11-27 14:45 | disposition home or self-care (01) | DRG 643 ==
LOC: ED 12:05 → ICU 15:49 → 3N 11-24 12:52
PROVIDERS: ATTEND Internal Medicine
DX: E22.2 Syndrome of inappropriate secretion of antidiuretic hormone (principal); G93.41 Metabolic encephalopathy; F17.210 Nicotine dependence, cigarettes, uncomplicated; E87.8 Other disorders of electrolyte and fluid balance, not elsewhere classified; E86.0 Dehydration; G89.4 Chronic pain syndrome; M54.9 Dorsalgia, unspecified; H54.41 Blindness, right eye, normal vision left eye; K02.9 Dental caries, unspecified; T36.0X5A Adverse effect of penicillins, initial encounter; K04.7 Periapical abscess without sinus; Z87.442 Personal history of urinary calculi; B94.9 Sequelae of unspecified infectious and parasitic disease; Z88.0 Allergy status to penicillin
CPT/HCPCS: 36415; 70450; 71020; 80048; 80053; 81001; 82150; 82533; 82948; 83690; 83735; 83930; 83935; 84295; 84300; 84443; 85025; 85557; 87324; 87449; 96374; 96375; C9113; G0480; J1200; J1630; J1650; J2060; J2550; J2930; J3486; J7030; J7070; S0077; S0164

== ENCOUNTER 2017-01-15 14:28 | Day surgery (SDC) ==
[2017-01-15] MEDS ORDERED: NORCO-7.5 PO PRN (15:12)
[2017-01-15] MEDS ORDERED: PHENERGAN PO PRN (15:12)
[2017-01-15] MEDS: NS 1,000 ML IV SCH (17:42)
[2017-01-15] MEDS: ZITHROMAX PO SCH (17:46)
[2017-01-15] MEDS: ZYLOPRIM PO SCH (20:41)
[2017-01-16] MEDS: NS 1,000 ML IV SCH (05:59)
[2017-01-16] MEDS ORDERED: PROTONIX PO SCH (07:00)
[2017-01-16 07:17] VITALS: BP 102/60
[2017-01-16] MEDS: ZITHROMAX PO SCH (08:15)
[2017-01-16] MEDS: ZYLOPRIM PO SCH (08:15)
[2017-01-16] MEDS ORDERED: SAMSCA PO SCH ×2 (09:00)
== END 2017-01-16 09:38 | disposition home or self-care (01) ==
LOC: OPS 14:28 → UNDOADMOB 14:28 → DIRADM 14:28 → 3N 16:28 → DIRADM 16:28 → OPS 01-16 09:38 → UNDODISOB 01-16 09:38 → EDSTATUS 01-16 14:19
PROVIDERS: ATTEND Internal Medicine
DX: C34.90 Malignant neoplasm of unspecified part of unspecified bronchus or lung (principal); E87.1 Hypo-osmolality and hyponatremia; Z79.899 Other long term (current) drug therapy
CPT/HCPCS: J7030